=== PATIENT | female | born 1975 | race Hispanic/Latino ===

== ENCOUNTER 2024-02-08 22:20 | Emergency (ER) | payer OTHER ==
[~2024-02-08] VITALS: Ht 144.8 cm; Wt 77.1 kg
[2024-02-08 22:51] LABS: RAPID GROUP A STREP negative (NEGATIVE)
[2024-02-08 22:54] LABS: SARS-CoV-2, RNA, NAAT NEGATIVE SARS CoV-2 (NEGATIVE)
[2024-02-08 23:00] LABS: INFLUENZA TYPE A Negative For Type A (NEGATIVE); INFLUENZA TYPE B Negative For Type B (NEGATIVE)
[2024-02-08] MEDS ORDERED: AMOX1TAB16 PO (23:42)
[2024-02-09 00:07] VITALS: BP 101/60; TEMP 98.3; O2SAT 99
[2024-02-09 00:11] VITALS: PULSE 73; RESP 20
[2024-02-09] MEDS: IpraTROPium/alBUTERol SULFATE 3 ML SOLUTION IH ONE (00:11)
[2024-02-09] MEDS: guaiFENesin-coDEINE 5 ML SYRUP PO ONE (00:13)
[2024-02-09] MEDS: dexaMETHasone SOD PHOSPHATE 4 MG/ML 1ML VIAL IM ONE (00:13)
== END 2024-02-09 00:35 | disposition home or self-care (01) ==
LOC: EDH 22:20
DX: J32.9 Chronic sinusitis, unspecified (principal); J45.909 Unspecified asthma, uncomplicated; Z20.822 Contact with and (suspected) exposure to COVID-19; Z79.899 Other long term (current) drug therapy
CPT/HCPCS: 99285; 71045; 87635; 87880; 87804 ×2; 93005; 96372; 94640; J1100

== ENCOUNTER 2025-04-16 09:37 | Emergency (ER) | payer OTHER ==
[~2025-04-16] VITALS: Ht 144.8 cm; Wt 74.4 kg
[2025-04-16 10:03] LABS: IMMATURE GRANULOCYTE ABSOLUTE 0.03 K/uL (0-1); NUCLEATED RED BLOOD CELLS 0.0 % (0.0-0.19); PLATELET COUNT (AUTO) 129 K/uL (130-400); RED BLOOD CELL COUNT(AUTO) 4.92 MIL/uL (4.00-5.50); RED CELL DISTRIBUTION WIDTH 13.1 % (11.0-15.5); WHITE BLOOD COUNT (AUTO) 6.2 K/uL (4.8-10.8)
[2025-04-16] MEDS: 0.9%NACL 1000ML 1,000 ML IV ONE (10:05)
[2025-04-16 10:18] LABS: CREATININE 0.7 mg/dL (0.5-1.0); GLOMERULAR FILTR. RATE CALC 105.0 mL/min (>90); GLUCOSE,RANDOM 101.0 mg/dL (70-105); SODIUM SERUM 137.0 mmol/L (136-145); UREA NITROGEN, BLOOD 9.0 mg/dL (7-18)
[2025-04-16 10:25] LABS: ASPARTATE AMINOTRANSFERASE 104.0 U/L (10-37); TOTAL PROTEIN, SERUM 7.8 g/dL (6.0-8.3)
--- NOTE | 2025-04-16 11:01 | ERN ---
General Chief Complaint: Diarrhea Stated Complaint: DIARRHEA Time Seen by MD: 09:39 Source: patient, family History of Present Illness Initial Comments Patient is a 50-year-old female coming in complaining of diarrhea. Patient states that the symptoms has been ongoing for five days. She states he feels weak in his here for further evaluation. Allergies: Coded Allergies: No Known Allergies (Unverified Allergy, Unknown, 02/08/24) Home Meds Active Scripts Amoxicillin/Potassium Clav (Amox Tr-K Clv 875-125 mg Tab) 875 Mg-125 Mg Tablet, 1 EACH PO BID for 7 Days, #14 TAB Prov:PAUL PAN MD 02/08/24 Past Medical History Past Medical History: Asthma Past Surgical History: None ROS Dictation CONSTITUTIONAL: No chills, no fever, no weakness, no diaphoresis, no malaise. HEAD/FACE: No signs of trauma. EENT: No eye pain, no blurred vision, no tearing, no double vision, no ear pain, no ear discharge, no nose pain, no nasal congestion, no throat pain, no throat swelling, no mouth pain. RESPIRATORY: No cough, no orthopnea, no SOB, no stridor, no wheezing. CARDIOVASCULAR: No chest pain, no edema, no palpitations, no syncope. GASTROINTESTINAL/ABDOMINAL: No abdominal pain, no constipation, no diarrhea, no nausea, no vomiting. GENITOURINARY: No abnormal discharge, no dysuria, no frequent urination, no hematuria. No complaints of pain in the genitals. MUSCULOSKELETAL: No back pain, no gout, no joint pain, no joint swelling, no muscle pain, no muscle stiffness, no neck pain. INTEGUMENTARY: No change in color, no change in hair/nails, no dryness, no lesion, no lumps, no rash. NEUROLOGICAL/PSYCH: No anxiety, not depressed, no emotional problem, no headache, no numbness, no pre-existing deficit, no history of seizures, no tremors, no weakness. HEMATOLOGIC/LYMPHATIC: Not anemic, no history of blood clots, no apparent bleeding, no bruising, glands not swollen. All Systems Negative, Except as Noted. Physical Exam Physical Exam Dictation VITAL SIGNS: Reviewed. GENERAL APPEARANCE: Alert, oriented x3, no acute distress, obese. HEAD AND FACE: Non-traumatic. EYES: PERRL, pink conjunctivas, eyelid no trauma, anterior chamber clear. EARS: Pinnas intact and no signs of trauma or erythema. Ear canals clear and no discharge. TMs no erythema. NOSE: No discharge, no bleeding. OROPHARYNX: Mouth normal, teeth no caries, tongue pink. Pharynx clear, no er ythema. Tonsils no exudates, no abscesses noted. Mucous membrane moist. NECK: Supple, non-tender, no thyromegaly, no masses, no JVD, no bruits. BREAST: Deferred. CHEST: No tenderness, no crepitus, no paradoxical movement, no retractions. LUNGS: Clear, well-ventilated, symmetric, no rales, no wheezing, no rhonchi, no stridor, good breath sounds bilaterally. HEART: Regular rate, regular rhythm, no murmur, no gallops. VASCULAR: No peripheral edema. ABDOMEN: Soft, positive bowel sounds, nondistended, no guarding, nontender, no rebound, no masses no hepatomegaly, no splenomegaly, no Méndez's sign, no hernias. RECTAL: Deferred. GENITAL: Deferred. NEUROLOGICAL: Normal speech, gross motor function intact, gross sensory function intact. MUSCULOSKELETAL: Neck nontender, full range of motion, back nontender, full range of motion. EXTREMITIES: Nontender, full range of motion. SKIN: Color pink, dry, no turgor, no rash, no lacerations, no abrasions, no contusions. LYMPHATICS: Deferred. Results Laboratory and Microbiology Lab and Micro Result Laboratory Tests Test 04/16/25 09:55 04/16/25 10:41 White Blood Count 6.2 K/uL (4.8-10.8) Red Blood Count 4.92 MIL/uL (4.00-5.50) Hemoglobin 14.3 g/dL (12.0-16.0) Hematocrit 42.6 % (36-48) Mean Corpuscular Volume 86.6 fL (79-99) Mean Corpuscular Hemoglobin 29.1 pg (27.0-33.0) Mean Corpuscular Hemoglobin Concent 33.6 g/dL (32.0-36.0) Red Cell Distribution Width 13.1 % (11.0-15.5) Platelet Count 129 K/uL (130-400) L Mean Platelet Volume 11.5 fL (7.5-10.5) H Immature Granulocyte % (Auto) 0.5 % (0-1) Neutrophils (%) (Auto) 58.1 % (40.0-77.0) Lymphocytes (%) (Auto) 27.3 % (21.0-51.0) Monocytes (%) (Auto) 10.7 % (3.0-13.0) Eosinophils (%) (Auto) 2.9 % (0.0-8.0) Basophils (%) (Auto) 0.5 % (0.0-5.0) Neutrophils # (Auto) 3.6 K/uL (1.8-7.7) Lymphocytes # (Auto) 1.7 K/uL (1.0-4.8) Monocytes # (Auto) 0.7 K/uL (0.1-1.0) Eosinophils # (Auto) 0.18 K/uL (0.00-0.70) Basophils # (Auto) 0.03 K/uL (0.00-0.20) Absolute Immature Granulocyte (auto 0.03 K/uL (0-1) Nucleated Red Blood Cells 0.0 % (0.0-0.19) Sodium Level 137 mmol/L (136-145) Potassium Level 3.2 mmol/L (3.5-5.1) L Chloride Level 101 mmol/L (101-111) Carbon Dioxide Level 27 mmol/L (21-32) Blood Urea Nitrogen 9 mg/dL (7-18) Creatinine 0.7 mg/dL (0.5-1.0) Glomerular Filtration Rate Calc 105 mL/min (>90) Random Glucose 101 mg/dL (70-105) Total Calcium 8.6 mg/dL (8.5-10.1) Total Bilirubin 0.7 mg/dL (0.2-1.0) Aspartate Amino Transf (AST/SGOT) 104 U/L (10-37) H Alanine Aminotransferase (ALT/SGPT) 125 U/L (12-78) H Alkaline Phosphatase 132 U/L (50-136) Total Protein 7.8 g/dL (6.0-8.3) Albumin 3.9 g/dL (3.5-5.0) Lipase 32 U/L (16-77) Urine Color LIGHT-YELLOW (YELLOW) Urine Appearance CLOUDY (CLEAR) H Urine pH 6.0 (5.0-8.0) Urine Specific [place] 1.008 (1.001-1.031) Urine Protein NEGATIVE mg/dL (NEGATIVE) Urine Glucose (UA) NEGATIVE mg/dL (NEGATIVE) Urine Ketones 10 mg/dL (NEGATIVE) H Urine Occult Blood SMALL (NEGATIVE) H Urine Nitrate NEGATIVE (NEGATIVE) Urine Bilirubin NEGATIVE mg/dL (NEGATIVE) Urine Urobilinogen 0.2 mg/dL (0.2-1.0) Urine Leukocyte Esterase 250 Saw/uL (NEGATIVE) H Urine RBC 0-1 /HPF (0-1) Urine WBC 6-10 /HPF (0-1) H Urine Squamous Epithelial Cells 10-25 /HPF (0-2) Urine Bacteria Moderate /HPF (None Seen) H Labs Reviewed?: Yes MDM MDM: Differential diagnosis: Gastroenteritis, dehydration, UTI, Rationale: Tests considered and ordered secondary to shared decision making include: Previous outside records reviewed: Old ER visits. Risk of complication and/or morbidity or mortality of patient management: None Medications-Per medication reconciliation Need for hospitalization: Patient does not meet criteria for hospitalization. Need for emergency major/minor surgery: No Patient is a 50-year-old female coming in complaining of diarrhea. Patient is hydrated with IV fluids laboratory workup showed leuko esterase urinary analysis patient will be discharged with a diagnosis of gastroenteritis and UTI. ED Course Orders Procedure Category Date Status Time Cbc With Differential LAB 04/16/25 Complete 09:45 Comprehensive LAB 04/16/25 Complete Metabolic Panel 09:45 Urinalysis Profile LAB 04/16/25 Complete 09:45 0.9%Nacl 1000ml (Ns PHA 04/16/25 Complete 1000ml) 10:00 Ondansetron 4mg Inj PHA 04/16/25 Complete (Zofran 4mg Inj) 10:00 Pantoprazole 40mg Inj PHA 04/16/25 Complete (Protonix 40mg Inj 10:00 Lipase LAB 04/16/25 Complete 09:45 Culture Urine SABAS 04/16/25 In Process 11:41 Current Medications Medications (Trade) Dose Ordered Sig/Pradip Route PRN Reason Start Time Stop Time Status Last Admin Dose Admin Ondansetron HCl (zoFRAN 4MG INJ) 4 mg ONCE ONCE IVP 04/16/25 10:00 04/16/25 10:01 DC 04/16/25 10:04 Pantoprazole Sodium (PROTonix 40MG INJ) 40 mg ONCE ONCE IVP 04/16/25 10:00 04/16/25 10:01 DC 04/16/25 10:04 Sodium Chloride 1,000 ml @ 0 mls/hr ONCE ONCE IV 04/16/25 10:00 04/16/25 10:01 DC 04/16/25 10:05 Vital Signs Date Time Temp Pulse Resp B/P (MAP) Pulse Ox O2 Delivery O2 Flow Rate FiO2 04/16/25 11:50 98.2 60 16 103/55 97 Room Air* 0 21 04/16/25 09:55 98.2 75 20 110/71 97 Room Air* 0 21 04/16/25 09:38 97.9 76 16 117/75 97 Room Air DX & DISP Disposition: Discharge Departure Impression: Primary Impression: UTI (urinary tract infection) Additional Impression: Gastroenteritis Condition: Stable Scripts Cephalexin Monohydrate (Keflex) 500 Mg Cap 1 CAP PO BID for 10 Days, #20 CAP 0 Refills Prov: PAUL PAN MD 04/16/25 Additional Instructions: FOLLOW-UP WITH PRIMARY CARE PROVIDER IN 1 TO 2 DAYS. TAKE MEDICATIONS DIRECTED HERE IN THE EMERGENCY ROOM. OKAY TO CONTINUE HOME MEDICATIONS UNLESS OTHERWISE DISCUSSED DURING YOUR VISIT IN THE EMERGENCY ROOM TODAY. RETURN TO YOUR NEAREST EMERGENCY ROOM IF SYMPTOMS WORSEN OR IF THERE IS NO IMPROVEMENT. CALL 911 IF YOU NEED IMMEDIATE ASSISTANCE. TAKE TYLENOL [id number] NEEDED AND IF NO CONTRAINDICATIONS ARE PRESENT. INCREASE ORAL HYDRATION. A WOUND CULTURE OR URINE CULTURE WAS ORDERED HERE IN THE EMERGENCY ROOM DEPARTMENT PLEASE FOLLOW-UP WITH PRIMARY CARE PROVIDER AND ADVISE THEM TO GET REPORTS FROM OUR FACILITY. IF YOU HAD ANY KRYSTAL WRAP/SPLINTS THAT WERE APPLIED HERE, PLEASE DO NOT REMOVE THEM UNTIL YOU SEE YOUR PRIMARY CARE OR SPECIALTY. Referrals: Referrals: SELF,REFERRAL (PCP) KAT SOLORZANO MD Time of Disposition: 13:10 PAUL PAN MD Apr 16, 2025 11:01
[2025-04-16 11:37] LABS: APPEARANCE,URINE CLOUDY (CLEAR); GLUCOSE, URINE (UA) NEGATIVE (NEGATIVE); LEUKOCYTE ESTERASE ,URINE 250 Leu/uL (NEGATIVE); NITRATE,URINE NEGATIVE (NEGATIVE); OCCULT BLOOD,URINE SMALL (NEGATIVE)
[2025-04-16 11:41] LABS: ADD UA MICROSCOPIC YES
[2025-04-16 13:15] VITALS: BP 111/51; PULSE 61; RESP 16; TEMP 98; O2SAT 97
== END 2025-04-16 13:18 | disposition home or self-care (01) ==
LOC: EDH 09:37
DX: K52.9 Noninfective gastroenteritis and colitis, unspecified (principal); N39.0 Urinary tract infection, site not specified; J45.909 Unspecified asthma, uncomplicated
CPT/HCPCS: 99284; 96374; 96361; 96375; 80053; 83690; 85025; 87086; 81001; 36415; J7030; J2405; J2470

== ENCOUNTER → 2025-05-17 | Outpatient (CLI) | payer OTHER ==
[~2025-05-17] MED LIST: AMOX1TAB16 PO; CEPH500B PO
--- NOTE | 2025-05-18 00:20 | HMCIMG ---
US ABDOMINAL ULTRASOUND Clinical Indication: Thrombocytopenia, unspecified. Comparison: None available. Technique: Real-time grayscale and color Doppler ultrasound examination of the abdomen was performed. Findings: Liver: The liver measures approximately 13.0 cm in craniocaudal dimension, which is within normal limits. The hepatic parenchyma demonstrates diffusely increased echogenicity relative to the right kidney, consistent with hepatic steatosis. No focal hepatic mass is identified. No intrahepatic biliary ductal dilatation is seen. The main portal vein is patent with peak velocity of approximately 11.1 cm/s, which is decreased and may be seen in the setting of portal hypertension. Gallbladder: The gallbladder is adequately distended. The gallbladder wall measures approximately 2 mm, within normal limits. No gallstones, sludge, pericholecystic fluid, or sonographic Méndez sign is identified. Biliary Tree: The common bile duct measures approximately 5 mm in diameter, which is within normal limits for age. No biliary dilatation is identified. Pancreas: The visualized portions of the pancreas are unremarkable in echotexture and size. No focal pancreatic abnormality is identified. Spleen: The spleen measures approximately 12.2 x 4.7 x 4.3 cm, which is at the upper limits of normal. The splenic parenchyma is homogeneous without focal lesion. Kidneys: The right kidney measures approximately 10.8 x 4.9 x 4.4 cm. The left kidney measures approximately 10.2 x 5.4 x 4.5 cm. Renal cortical thickness and echogenicity are within normal limits bilaterally. No hydronephrosis, renal calculi, or focal renal mass is identified. Aorta and IVC: The abdominal aorta measures approximately 1.8 cm proximally, 1.6 cm in the mid portion, and 1.4 cm distally, within normal limits. The inferior vena cava is patent. Ascites: No free fluid is identified. Impression: 1. Diffusely increased hepatic echogenicity, most consistent with hepatic steatosis. Correlation with liver function tests and metabolic risk factors is recommended. Per ACR guidelines, no routine imaging follow-up is required for uncomplicated hepatic steatosis; clinical and laboratory correlation is advised. 2. Main portal vein demonstrates reduced velocity (11.1 cm/s), which may be suggestive of early or mild portal hypertension in the appropriate clinical context. Clinical correlation and laboratory evaluation are recommended. If clinically indicated, further assessment with elastography or cross-sectional imaging may be considered per ACR appropriateness criteria. 3. Spleen size at the upper limits of normal. Given the history of thrombocytopenia, clinical correlation and consideration of hematologic evaluation are recommended. No specific imaging follow-up is required in the absence of progressive splenomegaly or new clinical findings. 4. Otherwise unremarkable abdominal ultrasound. /Brendan
== END | disposition home or self-care (01) ==
LOC: RAH 08:21
PROVIDERS: ATTEND Internal Medicine Medical Oncology
DX: D69.6 Thrombocytopenia, unspecified (principal)
CPT/HCPCS: 76700